=== PATIENT | male | born 1935 | race Caucasian/White ===

== ENCOUNTER 2019-04-11 07:18 | Day surgery (SDC) | payer OTHER ==
[2019-04-09 16:04] LABS: BASOPHILS % (AUTO) 0.7 % (0.0-5.0); EOSINOPHILS % (AUTO) 0.6 % (0.0-8.0); HEMATOCRIT 44.2 % (42-54); LYMPHOCYTES % (AUTO) 54.7 % (21.0-51.0); MEAN CORPUSCULAR HEMOGLOBIN 31.6 pg (27.0-33.0); MEAN CORPUSCULAR HGB CONC 33.3 g/dL (32.0-36.0); MEAN CORPUSCULAR VOLUME 94.7 fL (79-99); MONOCYTES % (AUTO) 9.7 % (3.0-13.0); NEUTROPHILS % (AUTO) 34.3 % (40.0-77.0); NUCLEATED RED BLOOD CELLS 0.1 % (0.0-0.19); PLATELET COUNT (AUTO) 263 K/uL (130-400); RED BLOOD CELL COUNT(AUTO) 4.67 MIL/uL (4.50-6.20); WHITE BLOOD COUNT (AUTO) 5.4 K/uL (4.8-10.8)
[2019-04-09 16:05] VITALS: BP 154/99
[2019-04-09 16:17] LABS: CREATININE 1.1 mg/dL (0.5-1.5); POTASSIUM 4.2 mmol/L (3.5-5.1)
[2019-04-11] VITALS (17 sets, daily range): BP systolic 127–164; BP diastolic 74–99
[~2019-04-11] VITALS: Ht 177.8 cm; Wt 82.4 kg
[~2019-04-11 07:18] MED LIST: CEFTRIAXONE SODIUM 1 GM IVP SCH; FINA5TAB2 PO; LACTATED RINGERS 1000ML 1,000 ML IV ONE
[2019-04-11] MEDS ORDERED: LIDOCAINE HCL MPF 1% 5ML VIAL ONE (07:47)
[2019-04-11] MEDS ORDERED: MIDAZOLAM HCL 1 MG/ML 2ML VIAL ONE (07:48)
[2019-04-11] MEDS ORDERED: FENTANYL CITRATE PF 50 MCG/1 ML 2ML VIAL ONE ×2 (07:48→09:10)
[2019-04-11] MEDS ORDERED: PROPOFOL 10 MG/ML 20ML VIAL IV ONE (07:48)
[2019-04-11] MEDS ORDERED: EPHEDRINE SULFATE 50 MG/ML AMPULE ONE (08:00)
[2019-04-11] MEDS ORDERED: GLYCOPYRROLATE 1 MG/5 ML SYRINGE ONE (08:48)
[2019-04-11] MEDS ORDERED: OPIUM/BELLADONNA ALKALOIDS 1 EACH SUPP.RECT RC ONE (10:01)
--- NOTE | 2019-04-11 10:50 | NUR ---
post op received pt from [facility], s/p cystoscopy, bladder bx, [address] draining bloody urine. pt awake and alert in bed,no distress noted. on arrival leg bag applied to site per md orders. spouse instructed on whipple care. vs stable on arrival.
[2019-04-11] MEDS ORDERED: PHENAZOPYRIDINE HCL 200 MG TABLET PO SCH (11:15)
--- NOTE | 2019-04-11 11:25 | NUR ---
dc pt dc home via w[facility], no distress noted. denies any pain or discomforts. accompanied by spouse
== END 2019-04-11 11:25 | disposition home or self-care (01) ==
LOC: DAH 07:18
PROVIDERS: ATTEND Urology
DX: N40.1 Benign prostatic hyperplasia with lower urinary tract symptoms (principal); N32.3 Diverticulum of bladder; R31.9 Hematuria, unspecified; N35.912 Unspecified bulbous urethral stricture, male; Z79.899 Other long term (current) drug therapy; R31.0 Gross hematuria
CPT/HCPCS: 36415; 52204; 52648; 80048; 82948; 85025; 88305; A4340; A4358; A4510; A4600; J0696; J2250; J2704; J3010 ×2; J3490 ×3; J7120 ×2

== ENCOUNTER 2021-07-30 08:13 | Inpatient (IN) | payer OTHER ==
[~2021-07-30] VITALS: Ht 177.8 cm; Wt 78.9 kg
[~2021-07-30 08:13] MED LIST changes: -CEFTRIAXONE SODIUM 1 GM IVP SCH; -LACTATED RINGERS 1000ML 1,000 ML IV ONE
[2021-07-30 08:48] LABS: BASOPHILS % (AUTO) 0.2 % (0.0-5.0); EOSINOPHILS % (AUTO) 0.1 % (0.0-8.0); HEMATOCRIT 39.2 % (42-54); LYMPHOCYTES % (AUTO) 47.6 % (21.0-51.0); MEAN CORPUSCULAR HEMOGLOBIN 30.4 pg (27.0-33.0); MEAN CORPUSCULAR HGB CONC 33.4 g/dL (32.0-36.0); MONOCYTES % (AUTO) 7.9 % (3.0-13.0); PLATELET COUNT (AUTO) 248 K/uL (130-400); RED BLOOD CELL COUNT(AUTO) 4.31 MIL/uL (4.50-6.20); RED CELL DISTRIBUTION WIDTH 13.2 % (11.0-15.5); WHITE BLOOD COUNT (AUTO) 8.5 K/uL (4.8-10.8)
[2021-07-30 08:56] LABS: CREATININE 1.4 mg/dL (0.5-1.5); POTASSIUM 4.9 mmol/L (3.5-5.1)
[2021-07-30 09:00] LABS: ALBUMIN 3.5 g/dL (3.5-5.0); BILIRUBIN,TOTAL 0.6 mg/dL (0.2-1.0); TOTAL PROTEIN, SERUM 6.9 g/dL (6.0-8.3)
[2021-07-30] MEDS ORDERED: IPRATROPIUM 0.5 MG/2.5 ML INH IH ONE (09:30)
[2021-07-30] MEDS ORDERED: ALBUTEROL 0.083% 2.5 MG/3 ML INH IH ONE (09:30)
[2021-07-30] MEDS ORDERED: FUROSEMIDE 40MG VIAL IV ONE (12:30)
[2021-07-30] MEDS ORDERED: NOREPINEPHRIN 4MG/NS 250ML 250 ML IV SCH (14:00)
[2021-07-30] MEDS ORDERED: ACETAMINOPHEN 325 MG TAB PO PRN (15:00)
[2021-07-30] MEDS ORDERED: HYDRALAZINE 20MG/ML VIAL IV PRN (15:00)
[2021-07-30] MEDS ORDERED: ONDANSETRON 4MG INJ IVP PRN (15:00)
[2021-07-30] MEDS ORDERED: LACTULOSE 20 GM/30 ML UDCUP PO PRN (15:00)
[2021-07-30] MEDS ORDERED: LABETALOL 20MG SYG IV PRN (15:00)
[2021-07-30] MEDS: INSULIN HUMULIN R 100 UNIT/ML 3ML SQ SCH ×2 (16:16→19:42)
[2021-07-30] MEDS ORDERED: PRED20TA3 PO (16:23)
[2021-07-30] MEDS ORDERED: FLUT1BLS15 IH (16:25)
[2021-07-30 18:41] VITALS: BP 121/92
[2021-07-30] MEDS: IPRATROPIUM/ALBUTEROL SULFATE 3 ML SOLUTION IH SCH ×2 (19:01→21:51)
[2021-07-30] MEDS ORDERED: BENZONATATE 100 MG CAPSULE PO ONE (20:47)
[2021-07-30] MEDS ORDERED: ZOLPIDEM TARTRATE 5 MG TAB ONE (20:48)
[2021-07-30] MEDS: SOLU-MEDROL 40MG VIAL IVP SCH (20:54)
[2021-07-30] MEDS: SIMVASTATIN 20 MG TABLET PO SCH (20:55)
[2021-07-30] MEDS: ZOLPIDEM TARTRATE 5 MG TAB PO SCH (20:55)
[2021-07-30] MEDS ORDERED: BENZONATATE 100 MG CAPSULE PO PRN (21:00)
[2021-07-30 23:22] VITALS: BP 102/68
[2021-07-31] MEDS: IPRATROPIUM/ALBUTEROL SULFATE 3 ML SOLUTION IH SCH ×5 (02:52→23:08)
[2021-07-31 02:57] LABS: BASOPHILS % (AUTO) 0.1 % (0.0-5.0); HEMATOCRIT 39.6 % (42-54); LYMPHOCYTES % (AUTO) 35.3 % (21.0-51.0); MEAN CORPUSCULAR HEMOGLOBIN 31.4 pg (27.0-33.0); MEAN CORPUSCULAR HGB CONC 33.3 g/dL (32.0-36.0); MEAN CORPUSCULAR VOLUME 94.3 fL (79-99); MONOCYTES % (AUTO) 4.5 % (3.0-13.0); NEUTROPHILS % (AUTO) 59.9 % (40.0-77.0); PLATELET COUNT (AUTO) 236 K/uL (130-400); RED CELL DISTRIBUTION WIDTH 13.5 % (11.0-15.5); WHITE BLOOD COUNT (AUTO) 8.7 K/uL (4.8-10.8)
[2021-07-31 03:08] LABS: CREATININE 1.8 mg/dL (0.5-1.5); MAGNESIUM 2.4 mg/dL (1.80-2.40); POTASSIUM 4.5 mmol/L (3.5-5.1)
[2021-07-31 03:12] VITALS: BP 127/87
[2021-07-31 03:14] LABS: HEMOGLOBIN A1C 6.3 % (4.0-6.0)
[2021-07-31] MEDS: INSULIN HUMULIN R 100 UNIT/ML 3ML SQ SCH ×4 (05:52→20:59)
[2021-07-31 07:30] VITALS: BP 133/83
[2021-07-31] MEDS: PANTOPRAZOLE 40 MG/VIAL IVP SCH (08:23)
[2021-07-31] MEDS: SOLU-MEDROL 40MG VIAL IVP SCH ×2 (08:24→20:36)
[2021-07-31] MEDS: ASPIRIN 325MG TAB PO SCH (08:24)
[2021-07-31] MEDS ORDERED: ENOXAPARIN SODIUM 40 MG/0.4 ML SYRINGE SQ SCH (09:00)
[2021-07-31] MEDS ORDERED: ENOXAPARIN SODIUM 1 MG/KG SQ SCH (09:00)
[2021-07-31] MEDS ORDERED: ASPIRIN 81MG CHEW TAB PO SCH (09:00)
[2021-07-31] MEDS ORDERED: ENOXAPARIN SODIUM 80 MG/0.8 ML SQ SCH (09:00)
[2021-07-31 11:14] LABS: ABG BASE EXCESS -2.3 mmol/L (-2.0-3.0); ABG HCO3 19.9 mmol/L (21.0-28.0); ABG OXYGEN SATURATION 93.5 % (95.0-99.0); ABG PCO2 28 mmHg (35-48)
[2021-07-31 11:27] VITALS: BP 114/86
[2021-07-31] MEDS: LACTATED RINGERS 1000ML IV SCH (11:29)
[2021-07-31] MEDS ORDERED: LACTATED RINGERS 1000ML IV SCH (13:00)
[2021-07-31 15:30] VITALS: BP 125/87
[2021-07-31] MEDS ORDERED: SOLU-MEDROL 40MG VIAL ONE (19:14)
[2021-07-31 19:22] LABS: INR 1.05 (0.85-1.15); PROTHROMBIN TIME 11.4 SEC (9.6-11.6)
[2021-07-31 20:12] VITALS: BP 124/91
[2021-07-31] MEDS ORDERED: HEPARIN 5,000 UNIT VIAL ONE (20:31)
[2021-07-31] MEDS: SIMVASTATIN 20 MG TABLET PO SCH (20:36)
[2021-07-31] MEDS: ZOLPIDEM TARTRATE 5 MG TAB PO SCH (20:36)
[2021-07-31] MEDS: HEPARIN 25,000 UNITS/250ML D5W 250 ML IV SCH (20:50)
[2021-07-31 23:23] VITALS: BP 109/71
[2021-08-01 03:34] VITALS: BP 118/84
[2021-08-01 04:13] LABS: BASOPHILS % (AUTO) 0.1 % (0.0-5.0); HEMATOCRIT 35.6 % (42-54); MEAN CORPUSCULAR HEMOGLOBIN 31.3 pg (27.0-33.0); MEAN CORPUSCULAR VOLUME 97.8 fL (79-99); MONOCYTES % (AUTO) 5.5 % (3.0-13.0); NEUTROPHILS % (AUTO) 52.9 % (40.0-77.0); PLATELET COUNT (AUTO) 220 K/uL (130-400); RED BLOOD CELL COUNT(AUTO) 3.64 MIL/uL (4.50-6.20); RED CELL DISTRIBUTION WIDTH 13.5 % (11.0-15.5); WHITE BLOOD COUNT (AUTO) 8.8 K/uL (4.8-10.8)
[2021-08-01 04:23] LABS: INR 1.05 (0.85-1.15); PROTHROMBIN TIME 11.4 SEC (9.6-11.6)
[2021-08-01 04:25] LABS: PARTIAL THROMBOPLASTIN TIME 41.6 SEC (26.3-35.5)
[2021-08-01 04:38] LABS: ALBUMIN 3.1 g/dL (3.5-5.0); BILIRUBIN,TOTAL 0.5 mg/dL (0.2-1.0); CREATININE 1.2 mg/dL (0.5-1.5); POTASSIUM 4.3 mmol/L (3.5-5.1)
[2021-08-01] MEDS: INSULIN HUMULIN R 100 UNIT/ML 3ML SQ SCH ×4 (04:48→21:00)
[2021-08-01] MEDS ORDERED: HEPARIN 5,000 UNIT VIAL ONE ×2 (04:52→18:42)
[2021-08-01] MEDS: IPRATROPIUM/ALBUTEROL SULFATE 3 ML SOLUTION IH SCH ×4 (06:23→23:52)
[2021-08-01 08:00] VITALS: BP 126/86
[2021-08-01] MEDS: PANTOPRAZOLE 40 MG/VIAL IVP SCH (08:45)
[2021-08-01] MEDS: SOLU-MEDROL 40MG VIAL IVP SCH (08:45)
[2021-08-01] MEDS: ASPIRIN 325MG TAB PO SCH (08:45)
[2021-08-01] MEDS: LACTATED RINGERS 1000ML IV SCH (11:06)
[2021-08-01 11:38] LABS: INR 1.05 (0.85-1.15); PROTHROMBIN TIME 11.4 SEC (9.6-11.6)
[2021-08-01 11:39] LABS: PARTIAL THROMBOPLASTIN TIME 53.4 SEC (26.3-35.5)
[2021-08-01 11:55] VITALS: BP 111/78
[2021-08-01 15:44] VITALS: BP 127/89
[2021-08-01 17:18] LABS: INR 1.03 (0.85-1.15); PROTHROMBIN TIME 11.2 SEC (9.6-11.6)
[2021-08-01 17:20] LABS: PARTIAL THROMBOPLASTIN TIME 42.7 SEC (26.3-35.5)
[2021-08-01] MEDS: HEPARIN 25,000 UNITS/250ML D5W 250 ML IV SCH (18:44)
[2021-08-01 20:00] VITALS: BP 108/75
[2021-08-01] MEDS: ZOLPIDEM TARTRATE 5 MG TAB PO SCH (21:36)
[2021-08-01] MEDS: SIMVASTATIN 20 MG TABLET PO SCH (21:36)
[2021-08-02 00:26] LABS: INR 1.09 (0.85-1.15); PROTHROMBIN TIME 11.8 SEC (9.6-11.6)
[2021-08-02 00:28] LABS: PARTIAL THROMBOPLASTIN TIME 71.1 SEC (26.3-35.5)
[2021-08-02 00:54] VITALS: BP 96/66
[2021-08-02 04:06] VITALS: BP 98/61
[2021-08-02 05:50] LABS: BASOPHILS % (AUTO) 0.1 % (0.0-5.0); EOSINOPHILS % (AUTO) 1.4 % (0.0-8.0); HEMATOCRIT 33.6 % (42-54); LYMPHOCYTES % (AUTO) 58.1 % (21.0-51.0); MEAN CORPUSCULAR HEMOGLOBIN 30.4 pg (27.0-33.0); MEAN CORPUSCULAR HGB CONC 32.7 g/dL (32.0-36.0); MEAN CORPUSCULAR VOLUME 92.8 fL (79-99); NEUTROPHILS % (AUTO) 33.2 % (40.0-77.0); PLATELET COUNT (AUTO) 224 K/uL (130-400); RED BLOOD CELL COUNT(AUTO) 3.62 MIL/uL (4.50-6.20); RED CELL DISTRIBUTION WIDTH 13.5 % (11.0-15.5); WHITE BLOOD COUNT (AUTO) 8.6 K/uL (4.8-10.8)
[2021-08-02 06:05] LABS: INR 1.08 (0.85-1.15); PROTHROMBIN TIME 11.7 SEC (9.6-11.6)
[2021-08-02 06:06] LABS: PARTIAL THROMBOPLASTIN TIME 59.8 SEC (26.3-35.5)
[2021-08-02 06:12] LABS: BILIRUBIN,TOTAL 0.4 mg/dL (0.2-1.0); CREATININE 1.2 mg/dL (0.5-1.5); TOTAL PROTEIN, SERUM 5.7 g/dL (6.0-8.3)
[2021-08-02] MEDS: INSULIN HUMULIN R 100 UNIT/ML 3ML SQ SCH (06:40)
[2021-08-02] MEDS: IPRATROPIUM/ALBUTEROL SULFATE 3 ML SOLUTION IH SCH ×2 (06:53→11:14)
[2021-08-02 08:00] VITALS: BP 130/96
[2021-08-02] MEDS: PANTOPRAZOLE 40 MG/VIAL IVP SCH (09:12)
[2021-08-02] MEDS: ASPIRIN 325MG TAB PO SCH (09:31)
[2021-08-02] MEDS: HEPARIN 25,000 UNITS/250ML D5W 250 ML IV SCH (10:24)
[2021-08-02] MEDS: LACTATED RINGERS 1000ML IV SCH (11:06)
[2021-08-02 12:00] VITALS: BP 128/86
[2021-08-02 12:27] LABS: INR 1.05 (0.85-1.15); PROTHROMBIN TIME 11.4 SEC (9.6-11.6)
[2021-08-02 12:44] LABS: PARTIAL THROMBOPLASTIN TIME > 139.0 SEC (26.3-35.5)
[2021-08-02] MEDS ORDERED: APIXABAN 5 MG TABLET PO SCH ×2 (13:00→21:00)
[2021-08-02] MEDS ORDERED: APIX5TAB PO (13:53)
[2021-08-02] MEDS ORDERED: AMOX-426 PO (13:53)
[2021-08-02 16:00] VITALS: BP 134/77
== END 2021-08-02 18:00 | disposition home or self-care (01) | DRG 175 ==
LOC: EDH 08:13 → OBSVTOIN 14:48 → 3AH 14:48
PROVIDERS: ADMIT Internal Medicine Critical Care Medicine; ATTEND Internal Medicine Critical Care Medicine
DX: I26.99 Other pulmonary embolism without acute cor pulmonale (principal); J96.01 Acute respiratory failure with hypoxia; N17.9 Acute kidney failure, unspecified; J44.1 Chronic obstructive pulmonary disease with (acute) exacerbation; I82.621 Acute embolism and thrombosis of deep veins of right upper extremity; N18.9 Chronic kidney disease, unspecified; I45.10 Unspecified right bundle-branch block; E78.00 Pure hypercholesterolemia, unspecified; J44.9 Chronic obstructive pulmonary disease, unspecified; Z20.822 Contact with and (suspected) exposure to COVID-19; E87.70 Fluid overload, unspecified; E78.5 Hyperlipidemia, unspecified; R77.8 Other specified abnormalities of plasma proteins; K57.90 Diverticulosis of intestine, part unspecified, without perforation or abscess without bleeding; K59.00 Constipation, unspecified
CPT/HCPCS: 36415; 36600; 71045; 74018; 74176; 78582; 80048; 80053; 82435; 82550; 82803; 82947; 82948; 83036; 83605; 83735; 83874; 83880; 84100; 84132; 84145; 84295; 84484; 85018; 85025; 85378; 85610; 85730; 86160; 86215; 86255; 87635; 93005; 93306; 93970; 94640; 94664; 94667; 94668; 94760; A9540; A9558; C9113; C9803; G0378; J1644; J1650; J1815; J1940; J2920

== ENCOUNTER 2024-04-16 06:32 | Emergency (ER) | payer OTHER ==
[~2024-04-16] VITALS: Ht 177.8 cm; Wt 81.2 kg
[~2024-04-16 06:32] MED LIST changes: +AMOX-426 PO; +APIX5TAB PO; +FINA-37 PO; -FINA5TAB2 PO; +FLUT1BLS15 IH
[2024-04-16 07:40] LABS: BASOPHILS # (AUTO) 0.04 K/uL (0.00-0.20); BASOPHILS % (AUTO) 0.6 % (0.0-5.0); EOSINOPHILS # (AUTO) 0.04 K/uL (0.00-0.70); EOSINOPHILS % (AUTO) 0.6 % (0.0-8.0); HEMATOCRIT 40.5 % (42-54); IMMATURE GRANULOCYTE ABSOLUTE 0.02 K/uL (0-1); LYMPHOCYTES % (AUTO) 55.5 % (21.0-51.0); MEAN CORPUSCULAR HEMOGLOBIN 30.8 pg (27.0-33.0); MEAN CORPUSCULAR HGB CONC 34.1 g/dL (32.0-36.0); MEAN CORPUSCULAR VOLUME 90.4 fL (79-99); MONOCYTES # (AUTO) 0.6 K/uL (0.1-1.0); MONOCYTES % (AUTO) 8.8 % (3.0-13.0); NEUTROPHILS # (AUTO) 2.4 K/uL (1.8-7.7); NEUTROPHILS % (AUTO) 34.2 % (40.0-77.0); PLATELET COUNT (AUTO) 300 K/uL (130-400); RED BLOOD CELL COUNT(AUTO) 4.48 MIL/uL (4.50-6.20); RED CELL DISTRIBUTION WIDTH 13.5 % (11.0-15.5); WHITE BLOOD COUNT (AUTO) 7.1 K/uL (4.8-10.8)
[2024-04-16 08:09] LABS: B-TYPE NATRIURETIC PEPTIDE 29 pg/mL (0-100)
[2024-04-16 08:17] LABS: ALBUMIN 3.3 g/dL (3.5-5.0); BILIRUBIN,TOTAL 0.5 mg/dL (0.2-1.0); CREATININE 1.1 mg/dL (0.5-1.3); TOTAL PROTEIN, SERUM 6.5 g/dL (6.0-8.3)
[2024-04-16 09:08] VITALS: BP 117/84; PULSE 81; RESP 16; O2SAT 96
== END 2024-04-16 09:46 | disposition home or self-care (01) ==
LOC: EDH 06:32
DX: R42 Dizziness and giddiness (principal); Z86.711 Personal history of pulmonary embolism; Z86.718 Personal history of other venous thrombosis and embolism; Z79.899 Other long term (current) drug therapy; Z98.890 Other specified postprocedural states
CPT/HCPCS: 36415; 71045; 80053; 82550; 83880; 84484; 85025; 93005

== ENCOUNTER → 2024-04-30 | Outpatient (CLI) | payer OTHER | END | disposition home or self-care (01) | LOC: RAH 12:47 | PROVIDERS: ATTEND Family Medicine | DX: I08.0 Rheumatic disorders of both mitral and aortic valves (principal); R01.1 Cardiac murmur, unspecified | CPT/HCPCS: 93306 ==